=== PATIENT | male | born 1945 | race Caucasian/White ===

== ENCOUNTER 2018-08-26 13:13 | Inpatient (IN) | payer MEDICARE ==
[~2018-08-26] VITALS: Ht 172.7 cm; Wt 111.5 kg
[~2018-08-26 13:13] MED LIST: ASPI81CH PO; CIPR500 PO; DIPATR PO; ESCI10 PO; FISH1000 PO; FLAX PO; FURO40 PO; Flax Oil1000 MG PO; LISI5 PO; LOVA40 PO; METF500C PO; MULVITMINF PO; NIFEDICAL; OMEPRAZOLE MAGN20 MG PO; POTCHL20ER PO; PROM25 PO; Super B-50 Com1 EACH PO; metronidazole 500 mg PO
[2018-08-26 13:56] LABS: BASOPHILS ABSOLUTE AUTO 0.04 K/mm3 (0.00-0.23); BASOPHILS PERCENT AUTO 1 % (0-2); EOSINOPHILS ABSOLUTE AUTO 0.03 K/mm3 (0.00-0.68); EOSINOPHILS PERCENT AUTO 0 % (0-6); Hematocrit 34.1 % (37.0-53.0); Hemoglobin 10.4 g/dL (13.5-17.5); IMMATURE GRAN ABSOLUTE AUTO 0.03 K/mm3 (0.00-0.10); IMMATURE GRAN PERCENT AUTO 0 % (0-1); LYMPHOCYTES ABSOLUTE AUTO 1.37 K/mm3 (0.84-5.20); LYMPHOCYTES PERCENT AUTO 19 % (21-46); MONOCYTES ABSOLUTE AUTO 0.86 K/mm3 (0.16-1.47); MONOCYTES PERCENT AUTO 12 % (4-13); Mean Corpuscular HGB 28.7 pg (26.0-34.0); Mean Corpuscular HGB Conc 30.5 g/dL (31.5-36.5); Mean Corpuscular Volume 94 fL (80-100); Mean Platelet Volume 10.7 fL (9.1-12.4); NEUTROPHILS ABSOLUTE AUTO 4.94 K/mm3 (1.96-9.15); NEUTROPHILS PERCENT AUTO 68 % (41-73); Platelet Count 284 K/mm3 (150-400); RDW Coefficient Variation 13.8 % (11.7-14.2); RDW Standard Deviation 47.9 fL (35.1-46.3); Red Blood Cell Count 3.63 M/mm3 (4.30-5.90); White Blood Cell Count 7.27 K/mm3 (4.00-11.30)
[2018-08-26] MEDS ORDERED: ZESTRIL40 MG PO (14:18)
[2018-08-26] MEDS ORDERED: HYDCHL12.5 PO (14:19)
[2018-08-26] MEDS ORDERED: ALBU90OI6 INH (14:19)
[2018-08-26] MEDS ORDERED: CENTRUM SILVER1 EAC2 PO (14:20)
[2018-08-26 15:47] LABS: Albumin, Blood 3.7 g/dL (3.4-5.0); Albumin/Globulin Ratio 0.9 (0.8-1.8); Bilirubin, Total 0.6 mg/dL (0.1-1.0); Bun/Creatinine Ratio 12.1 (12.0-20.0); Calcium, Blood 9.2 mg/dL (8.5-10.1); Creatinine, Blood 1.99 mg/dL (0.60-1.20); Potassium, Blood 5.2 mmol/L (3.5-5.5); Total Protein, Blood 7.7 g/dL (6.4-8.2)
[2018-08-26 16:08] LABS: Troponin I 3.38 ng/mL (0.000-0.040)
[2018-08-27 06:01] LABS: Hematocrit 31.9 % (37.0-53.0); Mean Corpuscular HGB 28.7 pg (26.0-34.0); Mean Corpuscular HGB Conc 31.3 g/dL (31.5-36.5); Mean Platelet Volume 11.2 fL (9.1-12.4); Platelet Count 271 K/mm3 (150-400); RDW Standard Deviation 46.5 fL (35.1-46.3); Red Blood Cell Count 3.49 M/mm3 (4.30-5.90); White Blood Cell Count 7.38 K/mm3 (4.00-11.30)
[2018-08-27 06:03] LABS: Mean Corpuscular Volume 91 fL (80-100)
[2018-08-27 06:26] LABS: Bun/Creatinine Ratio 14.5 (12.0-20.0); Calcium, Blood 8.9 mg/dL (8.5-10.1); Potassium, Blood 4.9 mmol/L (3.5-5.5)
[2018-08-28 04:16] LABS: Hemoglobin 10.1 g/dL (13.5-17.5)
[2018-08-28 04:31] LABS: Albumin, Blood 3.4 g/dL (3.4-5.0); Anion Gap 12 mmol/L (6-16); Blood Urea Nitrogen 33 mg/dL (8-24); Bun/Creatinine Ratio 15.2 (12.0-20.0); CO2, Blood 23 mmol/L (21-32); Calcium, Blood 9.1 mg/dL (8.5-10.1); Chloride, Blood 99 mmol/L (98-108); Creatinine, Blood 2.17 mg/dL (0.60-1.20); Glomerular Filtration Rate 32 (60-); Glucose, Blood 103 mg/dL (70-99); Phosphorus, Blood 5.2 mg/dL (2.5-4.9); Potassium, Blood 4.5 mmol/L (3.5-5.5); Sodium, Blood 134 mmol/L (136-145)
[2018-08-28 04:37] LABS: Phosphorus, Blood 5.1 mg/dL (2.5-4.9)
[2018-08-28 20:52] LABS: Protein, Urine Quantitative <5.0 mg/dL (0.0-11.9)
[2018-08-29 04:14] LABS: BASOPHILS ABSOLUTE AUTO 0.03 K/mm3 (0.00-0.23); BASOPHILS PERCENT AUTO 1 % (0-2); EOSINOPHILS ABSOLUTE AUTO 0.08 K/mm3 (0.00-0.68); EOSINOPHILS PERCENT AUTO 1 % (0-6); Hemoglobin 10.6 g/dL (13.5-17.5); IMMATURE GRAN ABSOLUTE AUTO 0.01 K/mm3 (0.00-0.10); IMMATURE GRAN PERCENT AUTO 0 % (0-1); LYMPHOCYTES ABSOLUTE AUTO 1.91 K/mm3 (0.84-5.20); LYMPHOCYTES PERCENT AUTO 33 % (21-46); MONOCYTES ABSOLUTE AUTO 0.77 K/mm3 (0.16-1.47); MONOCYTES PERCENT AUTO 14 % (4-13); Mean Corpuscular HGB 28.8 pg (26.0-34.0); Mean Corpuscular HGB Conc 32.1 g/dL (31.5-36.5); Mean Corpuscular Volume 90 fL (80-100); Mean Platelet Volume 11.2 fL (9.1-12.4); NEUTROPHILS ABSOLUTE AUTO 2.92 K/mm3 (1.96-9.15); NEUTROPHILS PERCENT AUTO 51 % (41-73); Platelet Count 258 K/mm3 (150-400); RDW Coefficient Variation 13.8 % (11.7-14.2); RDW Standard Deviation 44.6 fL (35.1-46.3); Red Blood Cell Count 3.68 M/mm3 (4.30-5.90); White Blood Cell Count 5.72 K/mm3 (4.00-11.30)
[2018-08-29 04:35] LABS: Albumin, Blood 3.5 g/dL (3.4-5.0); Anion Gap 9 mmol/L (6-16); Blood Urea Nitrogen 38 mg/dL (8-24); Bun/Creatinine Ratio 16.7 (12.0-20.0); CO2, Blood 28 mmol/L (21-32); Calcium, Blood 9.3 mg/dL (8.5-10.1); Chloride, Blood 97 mmol/L (98-108); Creatinine, Blood 2.28 mg/dL (0.60-1.20); Glomerular Filtration Rate 30 (60-); Glucose, Blood 100 mg/dL (70-99); Magnesium, Blood 1.9 mg/dL (1.6-2.4); Phosphorus, Blood 5.5 mg/dL (2.5-4.9); Potassium, Blood 4.3 mmol/L (3.5-5.5); Sodium, Blood 134 mmol/L (136-145)
[2018-08-30 04:02] LABS: Hemoglobin 11.1 g/dL (13.5-17.5)
[2018-08-30 04:18] LABS: Albumin, Blood 3.6 g/dL (3.4-5.0); Anion Gap 13 mmol/L (6-16); Blood Urea Nitrogen 36 mg/dL (8-24); Bun/Creatinine Ratio 17.2 (12.0-20.0); CO2, Blood 27 mmol/L (21-32); Calcium, Blood 9.5 mg/dL (8.5-10.1); Chloride, Blood 96 mmol/L (98-108); Creatinine, Blood 2.09 mg/dL (0.60-1.20); Glomerular Filtration Rate 33 (60-); Glucose, Blood 98 mg/dL (70-99); Phosphorus, Blood 5.3 mg/dL (2.5-4.9); Potassium, Blood 4.2 mmol/L (3.5-5.5); Sodium, Blood 136 mmol/L (136-145)
[2018-08-31 03:53] LABS: Hemoglobin 10.9 g/dL (13.5-17.5)
[2018-08-31 04:12] LABS: Albumin, Blood 3.5 g/dL (3.4-5.0); Anion Gap 10 mmol/L (6-16); Blood Urea Nitrogen 37 mg/dL (8-24); Bun/Creatinine Ratio 18.4 (12.0-20.0); CO2, Blood 28 mmol/L (21-32); Calcium, Blood 9.1 mg/dL (8.5-10.1); Chloride, Blood 96 mmol/L (98-108); Creatinine, Blood 2.01 mg/dL (0.60-1.20); Glomerular Filtration Rate 35 (60-); Glucose, Blood 98 mg/dL (70-99); Phosphorus, Blood 4.9 mg/dL (2.5-4.9); Potassium, Blood 4.1 mmol/L (3.5-5.5); Sodium, Blood 134 mmol/L (136-145)
[2018-09-01 04:04] LABS: Hematocrit 33.1 % (37.0-53.0); Hemoglobin 10.5 g/dL (13.5-17.5)
[2018-09-01 04:20] LABS: Albumin, Blood 3.6 g/dL (3.4-5.0); Anion Gap 9 mmol/L (6-16); Blood Urea Nitrogen 34 mg/dL (8-24); Bun/Creatinine Ratio 18.3 (12.0-20.0); CO2, Blood 28 mmol/L (21-32); Calcium, Blood 9.2 mg/dL (8.5-10.1); Chloride, Blood 96 mmol/L (98-108); Creatinine, Blood 1.86 mg/dL (0.60-1.20); Glomerular Filtration Rate 38 (60-); Glucose, Blood 96 mg/dL (70-99); Magnesium, Blood 2.2 mg/dL (1.6-2.4); Phosphorus, Blood 3.8 mg/dL (2.5-4.9); Potassium, Blood 4.6 mmol/L (3.5-5.5); Sodium, Blood 133 mmol/L (136-145)
[2018-09-02 05:14] LABS: Hematocrit 32.6 % (37.0-53.0); Hemoglobin 10.3 g/dL (13.5-17.5)
[2018-09-02 05:41] LABS: Magnesium, Blood 2.1 mg/dL (1.6-2.4)
[2018-09-02 05:44] LABS: Albumin, Blood 3.5 g/dL (3.4-5.0); Anion Gap 11 mmol/L (6-16); Blood Urea Nitrogen 32 mg/dL (8-24); Bun/Creatinine Ratio 17.4 (12.0-20.0); CO2, Blood 24 mmol/L (21-32); Chloride, Blood 96 mmol/L (98-108); Creatinine, Blood 1.84 mg/dL (0.60-1.20); Glomerular Filtration Rate 38 (60-); Glucose, Blood 96 mg/dL (70-99); Phosphorus, Blood 3.9 mg/dL (2.5-4.9); Potassium, Blood 4.5 mmol/L (3.5-5.5); Sodium, Blood 131 mmol/L (136-145)
[2018-09-02] MEDS ORDERED: ATOR80 PO (11:23)
[2018-09-02] MEDS ORDERED: CLOP75 PO (11:24)
[2018-09-02] MEDS ORDERED: FURO40 PO (11:25)
[2018-09-02] MEDS ORDERED: METO25ER PO (11:25)
== END 2018-09-02 15:11 | disposition home or self-care (01) | DRG 280 ==
LOC: ER 13:13 → PCU 17:20 → MEDS 09-01 10:47 → ENPENDDIS 09-02 11:46 → MEDS 09-02 15:11
PROVIDERS: Internal Medicine; Internal Medicine Nephrology; Nurse Practitioner Acute Care; Nurse Practitioner Family
DX: I13.0 Hypertensive heart and chronic kidney disease with heart failure and stage 1 through stage 4 chronic kidney disease, or unspecified chronic kidney disease (principal); I21.A1 Myocardial infarction type 2; I50.33 Acute on chronic diastolic (congestive) heart failure; N17.0 Acute kidney failure with tubular necrosis; J96.01 Acute respiratory failure with hypoxia; E87.1 Hypo-osmolality and hyponatremia; E11.22 Type 2 diabetes mellitus with diabetic chronic kidney disease; I25.10 Atherosclerotic heart disease of native coronary artery without angina pectoris; N18.3 Chronic kidney disease, stage 3 (moderate); K21.9 Gastro-esophageal reflux disease without esophagitis; E78.5 Hyperlipidemia, unspecified; F10.10 Alcohol abuse, uncomplicated; F32.9 Major depressive disorder, single episode, unspecified; I35.0 Nonrheumatic aortic (valve) stenosis; D63.1 Anemia in chronic kidney disease; Z95.1 Presence of aortocoronary bypass graft; Z68.38 Body mass index [BMI] 38.0-38.9, adult; Z79.84 Long term (current) use of oral hypoglycemic drugs; Z79.82 Long term (current) use of aspirin
CPT/HCPCS: 36415; 71046; 76770; 80048; 80053; 80069; 81050; 82947; 83735; 83880; 84100; 84145; 84156; 84484; 85014; 85018; 85025; 85027; 85730; 93005; 93010; 93306; 94760; 96365; 99285-25; J1644; J1940

== ENCOUNTER 2018-09-13 18:20 | Inpatient (IN) | payer MEDICARE ==
[~2018-09-13] VITALS: Ht 172.7 cm; Wt 105.6 kg
[~2018-09-13 18:20] MED LIST changes: -Hair, Skin & N1 EACH PO; -Lisinopril2.5 MG PO; -NITR.6SL SL; -Vitamin B Comple1 EA PO
[2018-09-13 19:24] LABS: BASOPHILS ABSOLUTE AUTO 0.04 K/mm3 (0.00-0.23); BASOPHILS PERCENT AUTO 1 % (0-2); EOSINOPHILS ABSOLUTE AUTO 0.06 K/mm3 (0.00-0.68); EOSINOPHILS PERCENT AUTO 1 % (0-6); Hematocrit 31.6 % (37.0-53.0); Hemoglobin 9.5 g/dL (13.5-17.5); IMMATURE GRAN ABSOLUTE AUTO 0.02 K/mm3 (0.00-0.10); IMMATURE GRAN PERCENT AUTO 0 % (0-1); LYMPHOCYTES PERCENT AUTO 15 % (21-46); MONOCYTES ABSOLUTE AUTO 0.51 K/mm3 (0.16-1.47); MONOCYTES PERCENT AUTO 8 % (4-13); Mean Corpuscular HGB 27.9 pg (26.0-34.0); Mean Corpuscular HGB Conc 30.1 g/dL (31.5-36.5); Mean Corpuscular Volume 93 fL (80-100); Mean Platelet Volume 10.4 fL (9.1-12.4); NEUTROPHILS ABSOLUTE AUTO 4.65 K/mm3 (1.96-9.15); NEUTROPHILS PERCENT AUTO 75 % (41-73); Platelet Count 288 K/mm3 (150-400); RDW Coefficient Variation 14.6 % (11.7-14.2); RDW Standard Deviation 49.4 fL (35.1-46.3); White Blood Cell Count 6.18 K/mm3 (4.00-11.30)
[2018-09-13 19:38] LABS: Albumin, Blood 3.5 g/dL (3.4-5.0); Albumin/Globulin Ratio 0.8 (0.8-1.8); Bilirubin, Total 0.6 mg/dL (0.1-1.0); Bun/Creatinine Ratio 11.6 (12.0-20.0); Calcium, Blood 9.2 mg/dL (8.5-10.1); Creatinine, Blood 1.73 mg/dL (0.60-1.20); Globulin, Blood 4.3 g/dL (2.2-4.0); Potassium, Blood 4.7 mmol/L (3.5-5.5); Total Protein, Blood 7.8 g/dL (6.4-8.2); Troponin I 0.059 ng/mL (0.000-0.040)
[2018-09-14 05:03] LABS: Bun/Creatinine Ratio 12.1 (12.0-20.0); Calcium, Blood 9.2 mg/dL (8.5-10.1); Creatinine, Blood 1.73 mg/dL (0.60-1.20); Potassium, Blood 4.2 mmol/L (3.5-5.5)
--- NOTE | 2018-09-14 07:29 | NUR ---
a+O, sbar report given to day staff, sob with activity, 4L via nc, 2L when lying still, saline locked, call light in reach
--- NOTE | 2018-09-14 15:39 | NUR ---
SHIFT SUMMARY PT HAS HAD NO ACUTE CHANGES THIS SHIFT, NO COMPLAINTS OF ANY KIND. WILL CONT TO MONITOR UNTIL REPORT GIVEN TO ONCOMING RN.
--- NOTE | 2018-09-14 18:34 | NUR ---
SHIFT SUMMARY; PT HAS BEEN SITTING ON SIDE OF BED WATCHING TV THIS AFTERNOON, VS STABLE, PT DENIES SOB AT THIS TIME BUT IS ON WALL OXYGEN. LASIX GIVEN. PT INDEPENDENT TO AND FROM BR. NON-EVENTFUL SHIFT.
--- NOTE | 2018-09-15 07:31 | NUR ---
SHIFT SUMMARY PT ADMITTED FOR CHF EXACERBATION. HE IS MAINTAINING SATS ON 2L VIA NC WITH CLEAR LUNGS, TELE WAS NSR IN THE 80S. HE REPORTS HIS SOB IS MUCH IMPROVED FROM ADMISSION. NO COVERAGE INDICATED AT HS. PT IS PLEASANT AND COOPERATIVE W/ CARES, ABLE TO MAKE NEEDS KNOWN. REPORT PASSED TO ONCOMING SHIFT.
--- NOTE | 2018-09-15 18:13 | NUR ---
PT STATES FEELING WELL TODAY. SAYS THE O2 REALLY HELPS HIM. NO C/O PAIN DURING SHIFT. PT ORDERS FOR IMG SCHEDULED TOMM. INDEPENDENT IN ROOM. CALL LIGHT IN REACH.
--- NOTE | 2018-09-16 07:27 | NUR ---
SUMMARY PT REPORTS FEELS MUCH BETTER WITH 02 USE. SITTING ON EDGE OF BED .
[2018-09-16 09:32] LABS: Bun/Creatinine Ratio 12.5 (12.0-20.0); Calcium, Blood 9.1 mg/dL (8.5-10.1); Creatinine, Blood 1.68 mg/dL (0.60-1.20); Potassium, Blood 3.8 mmol/L (3.5-5.5)
[2018-09-17 09:42] LABS: Albumin, Blood 3.2 g/dL (3.4-5.0); Anion Gap 9 mmol/L (6-16); Blood Urea Nitrogen 23 mg/dL (8-24); Bun/Creatinine Ratio 13.7 (12.0-20.0); CO2, Blood 27 mmol/L (21-32); Calcium, Blood 8.7 mg/dL (8.5-10.1); Chloride, Blood 96 mmol/L (98-108); Creatinine, Blood 1.68 mg/dL (0.60-1.20); Glomerular Filtration Rate 43 (60-); Glucose, Blood 132 mg/dL (70-99); Phosphorus, Blood 3.8 mg/dL (2.5-4.9); Potassium, Blood 3.5 mmol/L (3.5-5.5); Sodium, Blood 132 mmol/L (136-145)
--- NOTE | 2018-09-17 18:33 | NUR ---
SHIFT SUMMARY PT A&OX4, PLEASANT & COOPERATIVE WITH CARE. WEARS 1.5 NC AT REST, SAT IN CHAIR T/O SHIFT WITH LEGS ELEVATED, AMB IND TO BRP. VOIDING WELL. EDU USING URINAL TO KEEP ACCURATE COUNT OF URINE OUTPUT. AMB IN HALLWAYS X2 WITH 2L NC PORTABLE OXYGEN, DID FAIR. JEANETH PO, DENIES N&V, FLUID RESTRICTION 1500. IV LASIX BID, EDEMA SL IMPROVED, DENIES SOB OR CP. ORDERS FOR PT/OT AND HOME O2 EVAL. WILL CTM & TX PER EMAR UNTIL REPORT GIVEN TO ONCOMING NOC RN.
[2018-09-18 04:13] LABS: Albumin, Blood 3.2 g/dL (3.4-5.0); Anion Gap 7 mmol/L (6-16); Blood Urea Nitrogen 23 mg/dL (8-24); Bun/Creatinine Ratio 13.4 (12.0-20.0); CO2, Blood 30 mmol/L (21-32); Calcium, Blood 8.6 mg/dL (8.5-10.1); Chloride, Blood 97 mmol/L (98-108); Creatinine, Blood 1.72 mg/dL (0.60-1.20); Glomerular Filtration Rate 42 (60-); Glucose, Blood 102 mg/dL (70-99); Phosphorus, Blood 4.3 mg/dL (2.5-4.9); Potassium, Blood 4.3 mmol/L (3.5-5.5); Sodium, Blood 134 mmol/L (136-145)
--- NOTE | 2018-09-18 05:55 | NUR ---
SUMMARY: NO ACUTE CHANGE THIS SHIFT. VSS, PT REPORTS SOB ON EXERTION. SATS STABLE WITH 1.5L. PT INDEPENDENT IN ROOM, AT REST PT SEEMS TO HAVE NO LABORED BREATHING. FLUID RESTRICTION CONTINUES, PT FOLLOWING. HAS DENIED PAIN. PLAN IS FOR HOME 02 EVAL TODAY. NO SAFETY CONCERNS AT THIS TIME.
--- NOTE | 2018-09-18 11:57 | NUR ---
Attempted to see pt this am. Did not find him in his room. Will return this afternoon.
--- NOTE | 2018-09-18 19:51 | NUR ---
SHIFT SUMMARY PT A&OX4, VSS, AMB IND TO BATHROOM AND HALLWAYS, CURRENTLY 94% ON ROOM AIR. DENIES CP OR SOB. DENIES N&V, JEANETH PO. FLUID RESTRICTION 1200, PT CURRENTLY AT 880. PLEASANT & COOPERATIVE WITH CARE. REPORT GIVEN TO VAMSHI BRITT.
--- NOTE | 2018-09-19 04:41 | NUR ---
PT VSS T/O NIGHT. SATS >90% ON RA WHILE AWAKE AND DURING SLEEP. PT DOES REP SOB W/EXERTION. LUNGS DIM W/CRACKLES IN BASES. 1200CC FLUID RESTRICTION MAINTAINED. PT DENIED PAIN/N/V. PT UP INDEP IN ROOM, IS USING CALL LIGHT FOR ASSISTANCE, WILL CONT TO MONITOR UNTIL REP GIVEN TO ONCOMING RN.
[2018-09-19] MEDS ORDERED: Lisinopril2.5 MG PO (13:06)
--- NOTE | 2018-09-19 17:27 | NUR ---
DISCHARGE SUMMARY PT A&OX4, VSS, LEFT FLOOR VIA WC WITH C WEB DEVELOPER TO GO HOME WITH FRIEND, WITH ALL PERSONAL POSSESSIONS WITH DISCHARGE PACKET INCLUDING LAB ORDER. DISCHARGE INSTRUCTIONS GIVEN. PT REPORTED UNDERSTANDING THOSE INSTRUCTIONS INCLUDING FU WITH PCP, LAB DRAW IN 5 DAYS, CARDIOVASCULAR FU, KIDNEY FU, FLUID RESTRICTION 1200, DIET EDU PROVIDED. IV DC'D.
== END 2018-09-19 18:00 | disposition home or self-care (01) | DRG 291 ==
LOC: ER 18:20 → SURS 18:21
PROVIDERS: Emergency Medicine; Internal Medicine; ADMIT Hospitalist
DX: I13.0 Hypertensive heart and chronic kidney disease with heart failure and stage 1 through stage 4 chronic kidney disease, or unspecified chronic kidney disease (principal); I50.43 Acute on chronic combined systolic (congestive) and diastolic (congestive) heart failure; J96.01 Acute respiratory failure with hypoxia; E11.22 Type 2 diabetes mellitus with diabetic chronic kidney disease; I35.0 Nonrheumatic aortic (valve) stenosis; N18.3 Chronic kidney disease, stage 3 (moderate); D63.1 Anemia in chronic kidney disease; F32.9 Major depressive disorder, single episode, unspecified; K21.9 Gastro-esophageal reflux disease without esophagitis; R79.89 Other specified abnormal findings of blood chemistry; Z79.84 Long term (current) use of oral hypoglycemic drugs; Z95.5 Presence of coronary angioplasty implant and graft; E66.01 Morbid (severe) obesity due to excess calories; F17.210 Nicotine dependence, cigarettes, uncomplicated; I25.10 Atherosclerotic heart disease of native coronary artery without angina pectoris
CPT/HCPCS: 36415; 71045; 78582; 80048; 80053; 80069; 82947; 83880; 84484; 85025; 93005; 93010; 94640; 94760; 94761; 96374; 96376; 97161; 97530; 99285-25; A9540; A9558; G0378; J1940

== ENCOUNTER → 2018-09-13 | Outpatient (CLI) | payer MEDICARE ==
[~2018-09-13] MED LIST changes: +ALBU90OI6 INH; +ATOR80 PO; +CENTRUM SILVER1 EAC2 PO; +CLOP75 PO; +HYDCHL12.5 PO; +Hair, Skin & N1 EACH PO; +Lisinopril2.5 MG PO; +METO25ER PO; +NITR.6SL SL; +Vitamin B Comple1 EA PO; +ZESTRIL40 MG PO
[2018-09-13 18:03] LABS: BASOPHILS ABSOLUTE AUTO 0.04 K/mm3 (0.00-0.23); BASOPHILS PERCENT AUTO 1 % (0-2); EOSINOPHILS ABSOLUTE AUTO 0.05 K/mm3 (0.00-0.68); EOSINOPHILS PERCENT AUTO 1 % (0-6); Hematocrit 31.5 % (37.0-53.0); Hemoglobin 9.8 g/dL (13.5-17.5); IMMATURE GRAN ABSOLUTE AUTO 0.01 K/mm3 (0.00-0.10); IMMATURE GRAN PERCENT AUTO 0 % (0-1); LYMPHOCYTES ABSOLUTE AUTO 0.76 K/mm3 (0.84-5.20); LYMPHOCYTES PERCENT AUTO 12 % (21-46); MONOCYTES ABSOLUTE AUTO 0.51 K/mm3 (0.16-1.47); MONOCYTES PERCENT AUTO 8 % (4-13); Mean Corpuscular HGB 27.9 pg (26.0-34.0); Mean Corpuscular HGB Conc 31.1 g/dL (31.5-36.5); Mean Corpuscular Volume 90 fL (80-100); Mean Platelet Volume 10.6 fL (9.1-12.4); NEUTROPHILS ABSOLUTE AUTO 5.19 K/mm3 (1.96-9.15); NEUTROPHILS PERCENT AUTO 79 % (41-73); Platelet Count 309 K/mm3 (150-400); RDW Coefficient Variation 14.7 % (11.7-14.2); RDW Standard Deviation 48.2 fL (35.1-46.3); Red Blood Cell Count 3.51 M/mm3 (4.30-5.90); White Blood Cell Count 6.56 K/mm3 (4.00-11.30)
[2018-09-13 18:13] LABS: Albumin, Blood 3.6 g/dL (3.4-5.0); Albumin/Globulin Ratio 0.8 (0.8-1.8); Bilirubin, Total 0.7 mg/dL (0.1-1.0); Bun/Creatinine Ratio 11.1 (12.0-20.0); Calcium, Blood 9.4 mg/dL (8.5-10.1); Creatinine, Blood 1.9 mg/dL (0.60-1.20); Globulin, Blood 4.5 g/dL (2.2-4.0); Potassium, Blood 4.8 mmol/L (3.5-5.5); Total Protein, Blood 8.1 g/dL (6.4-8.2)
[2018-09-13 18:53] LABS: Troponin I 0.056 ng/mL (0.000-0.040)
== END | disposition home or self-care (01) ==
LOC: LAB EV 17:57 → LAB SHORT 17:57
PROVIDERS: Physician Assistant
DX: R06.00 Dyspnea, unspecified (principal)
CPT/HCPCS: 80053; 83880; 84484; 85025; 85379

== ENCOUNTER 2018-10-18 13:54 | Inpatient (IN) | payer MEDICARE ==
[~2018-10-18] VITALS: Ht 177.8 cm; Wt 86.2 kg
[~2018-10-18 13:54] MED LIST changes: +Lisinopril2.5 MG PO
[2018-10-18 14:42] LABS: BASOPHILS ABSOLUTE AUTO 0.01 K/mm3 (0.00-0.23); BASOPHILS PERCENT AUTO 0 % (0-2); EOSINOPHILS PERCENT AUTO 0 % (0-6); Hematocrit 36.6 % (37.0-53.0); Hemoglobin 10.3 g/dL (13.5-17.5); IMMATURE GRAN ABSOLUTE AUTO 0.04 K/mm3 (0.00-0.10); IMMATURE GRAN PERCENT AUTO 0 % (0-1); LYMPHOCYTES ABSOLUTE AUTO 0.24 K/mm3 (0.84-5.20); LYMPHOCYTES PERCENT AUTO 2 % (21-46); MONOCYTES ABSOLUTE AUTO 0.83 K/mm3 (0.16-1.47); MONOCYTES PERCENT AUTO 8 % (4-13); Mean Corpuscular HGB 23.5 pg (26.0-34.0); Mean Corpuscular HGB Conc 28.1 g/dL (31.5-36.5); Mean Platelet Volume 11.8 fL (9.1-12.4); NEUTROPHILS ABSOLUTE AUTO 9.86 K/mm3 (1.96-9.15); NEUTROPHILS PERCENT AUTO 90 % (41-73); NRBC Auto 1.8 /100 WBC (0.0-0.2); Platelet Count 234 K/mm3 (150-400); RDW Coefficient Variation 17.7 % (11.7-14.2); RDW Standard Deviation 53.3 fL (35.1-46.3); Red Blood Cell Count 4.39 M/mm3 (4.30-5.90); White Blood Cell Count 10.98 K/mm3 (4.00-11.30)
[2018-10-18 14:47] LABS: Mean Corpuscular Volume 83 fL (80-100)
[2018-10-18 14:57] LABS: Albumin/Globulin Ratio 0.7 (0.8-1.8); Bilirubin, Total 2.7 mg/dL (0.1-1.0); Bun/Creatinine Ratio 41.1 (12.0-20.0); Calcium, Blood 8.6 mg/dL (8.5-10.1); Creatine Kinase MB 7.1 ng/mL (0.0-3.6); Creatine Kinase MB Index 3.1 (0.0-4.0); Creatinine, Blood 1.85 mg/dL (0.60-1.20); Globulin, Blood 4.3 g/dL (2.2-4.0); Potassium, Blood 4.6 mmol/L (3.5-5.5); Total Protein, Blood 7.3 g/dL (6.4-8.2)
[2018-10-18 15:19] LABS: Source, Urine Catheter
[2018-10-18 15:26] LABS: Appearance, Urine Clear (Clear); Bilirubin, Urine Neg (Neg); Blood, Urine Neg (Neg); Color, Urine Yellow (P-Yellow); Glucose Qualitative, Urine Neg (Neg); Ketones, Urine 1+ (Neg); Leukocyte Esterase, Urine Neg (Neg); Nitrite, Urine Neg (Neg); Protein, Urine 1+ (Neg); Urobilinogen, Urine 3+ (Normal)
[2018-10-18 17:07] LABS: Magnesium, Blood 2.8 mg/dL (1.6-2.4)
[2018-10-18 17:09] LABS: Thyroid Stimulating Hormone 1.27 uIU/mL (0.360-4.800)
[2018-10-18] MEDS ORDERED: NITR.6SL SL (17:40)
[2018-10-18] MEDS ORDERED: Hair, Skin & N1 EACH PO (17:40)
[2018-10-18] MEDS ORDERED: FLAX PO (17:40)
[2018-10-18] MEDS ORDERED: Vitamin B Comple1 EA PO (17:40)
[2018-10-19 05:10] LABS: Hemoglobin 8.9 g/dL (13.5-17.5); Mean Corpuscular HGB 24.3 pg (26.0-34.0); Mean Corpuscular HGB Conc 29.7 g/dL (31.5-36.5); Mean Corpuscular Volume 82 fL (80-100); Mean Platelet Volume 11.5 fL (9.1-12.4); NRBC ABSOLUTE 0.11 K/mm3 (0.00-0.02); NRBC Auto 1.2 /100 WBC (0.0-0.2); Platelet Count 198 K/mm3 (150-400); RDW Coefficient Variation 17.7 % (11.7-14.2); RDW Standard Deviation 52.1 fL (35.1-46.3); Red Blood Cell Count 3.67 M/mm3 (4.30-5.90); White Blood Cell Count 8.93 K/mm3 (4.00-11.30)
[2018-10-19 05:39] LABS: Albumin, Blood 2.4 g/dL (3.4-5.0); Albumin/Globulin Ratio 0.6 (0.8-1.8); Bilirubin, Total 2.5 mg/dL (0.1-1.0); Bun/Creatinine Ratio 40.1 (12.0-20.0); Calcium, Blood 7.9 mg/dL (8.5-10.1); Creatinine, Blood 1.77 mg/dL (0.60-1.20); Globulin, Blood 3.8 g/dL (2.2-4.0); Potassium, Blood 4.2 mmol/L (3.5-5.5); Total Protein, Blood 6.2 g/dL (6.4-8.2)
[2018-10-19 05:44] LABS: Troponin I 0.549 ng/mL (0.000-0.040)
[2018-10-19 10:49] LABS: Adenovirus Not Detected (NOT DETECT); Coronavirus 229E Not Detected (NOT DETECT); Coronavirus HKU1 Not Detected (NOT DETECT); Coronavirus NL63 Not Detected (NOT DETECT); Coronavirus OC43 Not Detected (NOT DETECT); Human Metapneumovirus Not Detected (NOT DETECT); Human Rhinovirus/Enterovirus Not Detected (NOT DETECT); Influenza A Not Detected (NOT DETECT); Influenza A/2009-H1 Not Detected (NOT DETECT); Influenza A/H1 Not Detected (NOT DETECT); Influenza A/H3 Not Detected (NOT DETECT); Influenza B Not Detected (NOT DETECT)
[2018-10-19 10:50] LABS: Bordetella pertussis Not Detected (NOT DETECT); Chlamydophila pneumoniae Not Detected (NOT DETECT); Mycoplasma pneumoniae Not Detected (NOT DETECT); Parainfluenza Virus 1 Not Detected (NOT DETECT); Parainfluenza Virus 2 Not Detected (NOT DETECT); Parainfluenza Virus 3 Not Detected (NOT DETECT); Parainfluenza Virus 4 Not Detected (NOT DETECT); Respiratory Syncytial Virus Not Detected (NOT DETECT)
[2018-10-19 22:19] LABS: Base Excess Venous -2.5 mmol/L; Bicarbonate Venous 22.4 mmol/L (24.0-30.0); PCO2 Venous 38.6 mmHg (38-42); pH Blood Venous 7.38 (7.34-7.37)
== END 2018-10-24 10:35 ==
LOC: ER 13:54 → MEDS 17:04 → ICUE 18:00 → MEDS 10-23 15:00
PROVIDERS: Emergency Medicine; Hospitalist; Nurse Practitioner Acute Care; ADMIT Family Medicine
PROC: 5A09457 Assistance with Respiratory Ventilation, 24-96 Consecutive Hours, Continuous Positive Airway Pressure (ICD-10-PCS; principal; 2018-10-18)
DX: I13.0 Hypertensive heart and chronic kidney disease with heart failure and stage 1 through stage 4 chronic kidney disease, or unspecified chronic kidney disease (principal); J96.01 Acute respiratory failure with hypoxia; I21.A1 Myocardial infarction type 2; J18.9 Pneumonia, unspecified organism; I50.43 Acute on chronic combined systolic (congestive) and diastolic (congestive) heart failure; K92.2 Gastrointestinal hemorrhage, unspecified; I42.0 Dilated cardiomyopathy; Z51.5 Encounter for palliative care; N18.3 Chronic kidney disease, stage 3 (moderate); E11.22 Type 2 diabetes mellitus with diabetic chronic kidney disease; R57.0 Cardiogenic shock; I25.10 Atherosclerotic heart disease of native coronary artery without angina pectoris; I35.0 Nonrheumatic aortic (valve) stenosis; Z95.1 Presence of aortocoronary bypass graft; F32.9 Major depressive disorder, single episode, unspecified; K21.0 Gastro-esophageal reflux disease with esophagitis; E78.5 Hyperlipidemia, unspecified; F17.210 Nicotine dependence, cigarettes, uncomplicated; Z66 Do not resuscitate; I95.9 Hypotension, unspecified
CPT/HCPCS: 36415; 51702; 71045; 80053; 82550; 82553; 82803; 82947; 83605; 83735; 83880; 84145; 84443; 84484; 85025; 85027; 87449; 87486; 87581; 87633; 87798; 93005; 93010; 93308; 93321; 94640; 94760; 96365; 96367; 99285-25; J0456; J0696; J1265; J1650; J1940; J2310; J2405; J3010; J7030; J7050